=== PATIENT | male | born 1975 | race Caucasian/White ===

== ENCOUNTER 2017-04-04 17:06 | Emergency (ER) | payer MEDICAID ==
[~2017-04-04] VITALS: Ht 182.9 cm; Wt 79.6 kg
[~2017-04-04 17:06] MED LIST: COM10T PO; FAMO-115 CORPAK; HYDR-569 PO; ONDA4TAB6 PO; ONDA8TAB6 PO
[2017-04-04 17:38] VITALS: BP 136/88
[2017-04-04 17:56] LABS: BASOPHILS # (AUTO) 0.1 X10'3 (0-0.2); BASOPHILS % (AUTO) 0.8 % (0-1); EOSINOPHILS % (AUTO) 0 % (0-6); HEMATOCRIT 47.4 % (42.0-52.0); HEMOGLOBIN 16.2 g/dl (14.0-17.9); LYMPHOCYTES # (AUTO) 2.4 X10'3 (1.1-4.8); LYMPHOCYTES % (AUTO) 15.4 % (21-51); MEAN CORPUSCULAR HEMOGLOBIN 30.3 PG (27.0-31.0); MEAN CORPUSCULAR HGB CONC 34.1 % (33.0-36.5); MEAN CORPUSCULAR VOLUME 88.7 FL (78-98); MEAN PLATELET VOLUME 8.3 FL (7.4-10.4); MONOCYTES # (AUTO) 1.2 X10'3 (0-0.9); MONOCYTES % (AUTO) 7.4 % (2-12); NEUTROPHILS # (AUTO) 12.1 X10'3 (1.8-7.7); NEUTROPHILS % (AUTO) 76.4 % (42-75); PLATELET COUNT 421 X10'3 (140-440); RED BLOOD COUNT 5.34 X10'6 (4.70-6.10); RED CELL DISTRIBUTION WIDTH 12.9 % (11.5-14.5); WHITE BLOOD COUNT 15.9 X10'3 (4.5-11.0)
[2017-04-04 18:05] LABS: INR 1.1 INR; PROTHROMBIN TIME 11.2 SECONDS (9.0-12.0)
[2017-04-04 18:11] LABS: ALANINE AMINOTRANSFERASE 59 U/L (12-78); ALBUMIN/GLOBULIN RATIO 0.7 (1.1-1.5); ALKALINE PHOSPHATASE 104 IU/L (46-116); ANION GAP 10 (8-16); ASPARTATE AMINO TRANSFERASE 31 U/L (10-37); BILIRUBIN,TOTAL 0.6 MG/DL (0.1-1.0); BLOOD UREA NITROGEN 22 MG/DL (7-18); BUN/CREATININE RATIO 16.1 (5.4-32.0); CALCIUM 10.2 MG/DL (8.5-10.1); CHLORIDE 94 MMOL/L (99-107); CREATININE 1.37 MG/DL (0.60-1.10); GLUCOSE 110 MG/DL (70-104); POTASSIUM 4.2 MMOL/L (3.5-5.1); SODIUM 136 MMOL/L (135-145); TOTAL CARBON DIOXIDE 32.1 MMOL/L (24-32); TOTAL PROTEIN 9.4 G/DL (6.4-8.2); eGFR 58 ML/MIN
[2017-04-05] MEDS ORDERED: NO HOME MEDS (12:50)
== END 2017-04-04 20:42 | disposition left against medical advice (07) ==
LOC: ER 17:07
DX: R10.9 Unspecified abdominal pain (principal); R11.10 Vomiting, unspecified; Z53.21 Procedure and treatment not carried out due to patient leaving prior to being seen by health care provider
CPT/HCPCS: 36415; 80053; 85025; 85610; 99281

== ENCOUNTER 2017-04-05 09:23 | Inpatient (IN) | payer MEDICAID ==
[~2017-04-05] VITALS: Ht 182.9 cm; Wt 82.0 kg
[2017-04-05] MEDS ORDERED: LORazepam 2 mg/ml vial IV ONE (09:50)
[2017-04-05] MEDS ORDERED: HYDROmorphone 1 mg/ml syringe IV ONE ×2 (09:50→14:40)
[2017-04-05] MEDS ORDERED: famotidine/PF 10 mg/ml inj IV ONE (09:50)
[2017-04-05] MEDS ORDERED: normal saline 1000ML IV soln IVB ONE ×2 (09:50→10:55)
[2017-04-05] MEDS ORDERED: ondansetron/PF 4mg/2ml inj IV ONE (09:50)
[2017-04-05 09:53] LABS: BASOPHILS % (AUTO) 0.2 % (0-1); EOSINOPHILS % (AUTO) 0 % (0-6); HEMATOCRIT 48.4 % (42.0-52.0); HEMOGLOBIN 16.3 g/dl (14.0-17.9); LYMPHOCYTES # (AUTO) 2.5 X10'3 (1.1-4.8); LYMPHOCYTES % (AUTO) 12.9 % (21-51); MEAN CORPUSCULAR HEMOGLOBIN 29.6 PG (27.0-31.0); MEAN CORPUSCULAR HGB CONC 33.7 % (33.0-36.5); MEAN PLATELET VOLUME 8.6 FL (7.4-10.4); MONOCYTES % (AUTO) 5.1 % (2-12); NEUTROPHILS # (AUTO) 15.7 X10'3 (1.8-7.7); NEUTROPHILS % (AUTO) 81.8 % (42-75); PLATELET COUNT 412 X10'3 (140-440); RED BLOOD COUNT 5.49 X10'6 (4.70-6.10); RED CELL DISTRIBUTION WIDTH 12.9 % (11.5-14.5); WHITE BLOOD COUNT 19.2 X10'3 (4.5-11.0)
[2017-04-05 10:13] LABS: ALBUMIN/GLOBULIN RATIO 0.7 (1.1-1.5); ALKALINE PHOSPHATASE 105 IU/L (46-116); ANION GAP 13 (8-16); ASPARTATE AMINO TRANSFERASE 28 U/L (10-37); BILIRUBIN,TOTAL 0.8 MG/DL (0.1-1.0); BLOOD UREA NITROGEN 20 MG/DL (7-18); BUN/CREATININE RATIO 14.1 (5.4-32.0); CHLORIDE 91 MMOL/L (99-107); CREATININE 1.42 MG/DL (0.60-1.10); GLUCOSE 114 MG/DL (70-104); LIPASE 109 U/L (73-393); POTASSIUM 3.2 MMOL/L (3.5-5.1); SODIUM 134 MMOL/L (135-145); TOTAL CARBON DIOXIDE 30.3 MMOL/L (24-32); TOTAL PROTEIN 9.4 G/DL (6.4-8.2); eGFR 55 ML/MIN
[2017-04-05] MEDS ORDERED: iohexol 300mg/ml 100ml inj. ONE (10:25)
[2017-04-05 11:06] LABS: ALANINE AMINOTRANSFERASE 64 U/L (12-78)
[2017-04-05 11:52] LABS: CLARITY,URINE CLEAR (Clear); COLOR,URINE YELLOW (Yellow); GLUCOSE, URINE NEGATIVE (Neg); KETONES,URINE 15 mg/dl (Neg); LEUKOCYTE ESTERASE ,URINE NEGATIVE (Neg); NITRITES, URINE NEGATIVE (Neg); OCCULT BLOOD,URINE MODERATE (Neg); PROTEIN,URINE NEGATIVE (Neg)
[2017-04-05 11:59] LABS: UA COLLECTION TYPE CLN CATCH MIDSTREAM
[2017-04-05 12:00] LABS: BACTERIA,URINE NONE SEEN /HPF (Neg); MUCUS STRANDS FEW /LPF (Neg); RBC,URINE 0-2 /HPF (0-2); SQUAMOUS EPITHELIAL CELL,UR FEW /LPF (FEW); WBC,URINE NONE SEEN /HPF (0-4)
[2017-04-05] MEDS ORDERED: NO HOME MEDS (12:50)
[2017-04-05] MEDS ORDERED: magnesium hydroxide 30ml (MOM) UD suspension PO PRN (15:10)
[2017-04-05] MEDS ORDERED: HYDROcodone/acetaminophen 10/325mg tab PO PRN (15:10)
[2017-04-05] MEDS ORDERED: HYDROcodone/acetaminophen 5mg/325mg tablet PO PRN (15:10)
[2017-04-05] MEDS ORDERED: potassium Cl 20 mEq SR tablet PO PRN ×2 (15:10)
[2017-04-05] MEDS ORDERED: ondansetron/PF 4mg/2ml inj IV PRN (15:10)
[2017-04-05] MEDS ORDERED: magnesium 4gm in 100ml NS 100 ML IV PRN (15:10)
[2017-04-05] MEDS ORDERED: HYDROmorphone 1 mg/ml syringe IV PRN ×2 (15:10)
[2017-04-05] MEDS ORDERED: mag hydrox/Alum hydrox/simeth 30ml oral suspension PO PRN (15:10)
[2017-04-05] MEDS ORDERED: potassium Cl 40MEQ/NS 500ml 500 ML IV PRN ×2 (15:10)
[2017-04-05] MEDS ORDERED: magnesium 2GM in 50ml NS 50 ML IV PRN (15:10)
[2017-04-05] MEDS ORDERED: acetaminophen 325mg tablet PO PRN ×2 (15:10)
[2017-04-05] MEDS ORDERED: magnesium Cl slow-release 64mg tablet PO PRN (15:10)
[2017-04-05 15:18] LABS: URINE AMPHETAMINE SCREEN NEGATIVE (Neg); URINE BARBITUATE SCREEN NEGATIVE (Neg); URINE BENZODIAZEPINES SCREEN NEGATIVE (Neg); URINE CANNABINOID SCREEN POSITIVE (Neg); URINE COCAINE SCREEN NEGATIVE (Neg); URINE METHADONE SCREEN NEGATIVE (Neg); URINE OPIATE SCREEN POSITIVE (Neg); URINE PHENCYCLIDINE SCREEN NEGATIVE (Neg)
[2017-04-05 15:38] LABS: BASOPHILS % (AUTO) 0.2 % (0-1); EOSINOPHILS # (AUTO) 0.2 X10'3 (0-0.9); EOSINOPHILS % (AUTO) 1.1 % (0-6); HEMATOCRIT 39.3 % (42.0-52.0); HEMOGLOBIN 13.3 g/dl (14.0-17.9); LYMPHOCYTES # (AUTO) 3.3 X10'3 (1.1-4.8); LYMPHOCYTES % (AUTO) 17.6 % (21-51); MEAN CORPUSCULAR HEMOGLOBIN 29.8 PG (27.0-31.0); MEAN CORPUSCULAR HGB CONC 33.7 % (33.0-36.5); MEAN CORPUSCULAR VOLUME 88.3 FL (78-98); MONOCYTES # (AUTO) 1.8 X10'3 (0-0.9); MONOCYTES % (AUTO) 9.5 % (2-12); NEUTROPHILS # (AUTO) 13.3 X10'3 (1.8-7.7); NEUTROPHILS % (AUTO) 71.6 % (42-75); PLATELET COUNT 352 X10'3 (140-440); RED BLOOD COUNT 4.45 X10'6 (4.70-6.10); RED CELL DISTRIBUTION WIDTH 12.8 % (11.5-14.5); WHITE BLOOD COUNT 18.5 X10'3 (4.5-11.0)
[2017-04-05 18:39] VITALS: BP 147/99
[2017-04-05 18:45] VITALS: BP 138/93
[2017-04-05] MEDS: K and/or MAG REPLACEMENT MC SCH (19:00)
[2017-04-05] MEDS: normal saline 1000ml 1,000 ML IV SCH (19:14)
[2017-04-05] MEDS ORDERED: temazepam 15mg capsule PO PRN (21:00)
[2017-04-06 00:20] VITALS: BP 139/92
[2017-04-06] MEDS ORDERED: diphenhydrAMINE 50 mg/ml inj ONE (00:26)
[2017-04-06] MEDS ORDERED: methylPREDNISolone sod succ 125mg/2ml vial ONE (00:37)
[2017-04-06] MEDS ORDERED: famotidine/PF 10 mg/ml inj IV STA (00:43)
[2017-04-06] MEDS ORDERED: epiNEPHrine 1 mg/ml inj IM STA (00:46)
[2017-04-06] MEDS ORDERED: epiNEPHrine 1 mg/ml inj ONE (00:48)
[2017-04-06] MEDS ORDERED: famotidine/PF 10 mg/ml inj IV ONE (00:50)
[2017-04-06] MEDS ORDERED: diphenhydrAMINE 50 mg/ml inj IV ONE (00:50)
[2017-04-06] MEDS ORDERED: methylPREDNISolone sod succ 125mg/2ml vial IV ONE (00:50)
[2017-04-06 04:15] VITALS: BP 134/74
[2017-04-06] MEDS: normal saline 1000ml 1,000 ML IV SCH ×3 (04:18→14:44)
[2017-04-06 06:55] VITALS: BP 143/81
[2017-04-06] MEDS: K and/or MAG REPLACEMENT MC SCH (08:00)
[2017-04-06] MEDS ORDERED: enoxaparin 40mg/0.4ml syringe SQ SCH (08:00)
[2017-04-06] MEDS: diphenhydrAMINE 50 mg/ml inj IV SCH ×3 (09:04→20:14)
[2017-04-06 09:29] LABS: BASOPHILS % (AUTO) 0.1 % (0-1); EOSINOPHILS # (AUTO) 0.1 X10'3 (0-0.9); EOSINOPHILS % (AUTO) 0.7 % (0-6); HEMATOCRIT 41.5 % (42.0-52.0); HEMOGLOBIN 13.9 g/dl (14.0-17.9); LYMPHOCYTES # (AUTO) 0.8 X10'3 (1.1-4.8); LYMPHOCYTES % (AUTO) 4.4 % (21-51); MEAN CORPUSCULAR HEMOGLOBIN 30.1 PG (27.0-31.0); MEAN CORPUSCULAR HGB CONC 33.4 % (33.0-36.5); MEAN CORPUSCULAR VOLUME 90.2 FL (78-98); MEAN PLATELET VOLUME 9.4 FL (7.4-10.4); MONOCYTES # (AUTO) 0.1 X10'3 (0-0.9); MONOCYTES % (AUTO) 0.5 % (2-12); NEUTROPHILS # (AUTO) 16.4 X10'3 (1.8-7.7); NEUTROPHILS % (AUTO) 94.3 % (42-75); PLATELET COUNT 346 X10'3 (140-440); RED CELL DISTRIBUTION WIDTH 12.8 % (11.5-14.5); WHITE BLOOD COUNT 17.4 X10'3 (4.5-11.0)
[2017-04-06 09:36] LABS: ANION GAP 7 (8-16); BLOOD UREA NITROGEN 5 MG/DL (7-18); CALCIUM 8.7 MG/DL (8.5-10.1); CHLORIDE 101 MMOL/L (99-107); CREATININE 0.83 MG/DL (0.60-1.10); GLUCOSE 129 MG/DL (70-104); MAGNESIUM 1.7 MG/DL (1.5-2.4); POTASSIUM 3.8 MMOL/L (3.5-5.1); SODIUM 139 MMOL/L (135-145); eGFR > 90 ML/MIN
[2017-04-06] MEDS ORDERED: ondansetron/PF 4mg/2ml inj IV PRN (15:05)
[2017-04-06] MEDS ORDERED: insulin Lispro (HumaLOG) vial - multi-dose SQ SCH (18:40)
[2017-04-06] MEDS ORDERED: glucagon, human recombinant 1mg kit SUBCUT PRN (18:40)
[2017-04-06] MEDS ORDERED: MESSAGE TO PHARMACY PO ONE (18:40)
[2017-04-06] MEDS ORDERED: dextrose 50%-water 50ml dispensing syringe IV PRN ×2 (18:40)
[2017-04-06] MEDS ORDERED: dextrose ORAL solution 15 GM/59 ML bottle PO PRN ×2 (18:40)
[2017-04-06 19:41] LABS: HEMOGLOBIN A1C 5.6 % (4.5-6.2)
[2017-04-06 20:00] VITALS: BP 130/81
[2017-04-06] MEDS ORDERED: Insulin Detemir pen SQ SCH (21:00)
[2017-04-07] VITALS: BP 129/75
[2017-04-07] MEDS: diphenhydrAMINE 50 mg/ml inj IV SCH (01:58)
[2017-04-07] MEDS: normal saline 1000ml 1,000 ML IV SCH (04:50)
[2017-04-07 06:27] LABS: BASOPHILS # (AUTO) 0.1 X10'3 (0-0.2); BASOPHILS % (AUTO) 0.3 % (0-1); EOSINOPHILS # (AUTO) 0.4 X10'3 (0-0.9); EOSINOPHILS % (AUTO) 1.7 % (0-6); HEMATOCRIT 37.5 % (42.0-52.0); HEMOGLOBIN 12.7 g/dl (14.0-17.9); LYMPHOCYTES # (AUTO) 2.3 X10'3 (1.1-4.8); LYMPHOCYTES % (AUTO) 10.2 % (21-51); MEAN CORPUSCULAR HEMOGLOBIN 30.1 PG (27.0-31.0); MEAN CORPUSCULAR HGB CONC 33.8 % (33.0-36.5); MEAN PLATELET VOLUME 9.5 FL (7.4-10.4); MONOCYTES % (AUTO) 8.8 % (2-12); NEUTROPHILS # (AUTO) 17.7 X10'3 (1.8-7.7); PLATELET COUNT 310 X10'3 (140-440); RED BLOOD COUNT 4.22 X10'6 (4.70-6.10); RED CELL DISTRIBUTION WIDTH 12.8 % (11.5-14.5); WHITE BLOOD COUNT 22.4 X10'3 (4.5-11.0)
[2017-04-07 06:59] LABS: ALBUMIN 2.7 G/DL (3.4-5.0); ANION GAP 7 (8-16); BLOOD UREA NITROGEN 7 MG/DL (7-18); BUN/CREATININE RATIO 8.8 (5.4-32.0); CALCIUM 8.3 MG/DL (8.5-10.1); CHLORIDE 102 MMOL/L (99-107); GLUCOSE 100 MG/DL (70-104); MAGNESIUM 1.6 MG/DL (1.5-2.4); POTASSIUM 3.2 MMOL/L (3.5-5.1); SODIUM 139 MMOL/L (135-145); TOTAL CARBON DIOXIDE 29.9 MMOL/L (24-32); eGFR > 90 ML/MIN
[2017-04-07 07:00] VITALS: BP 136/76
== END 2017-04-07 09:02 | disposition left against medical advice (07) | DRG 720 ==
LOC: ER 09:23 → ED HOLD 15:08 → MED 3N 17:05
PROVIDERS: ADMIT Family Medicine; ATTEND Family Medicine
PROC: BW211ZZ Computerized Tomography (CT Scan) of Abdomen and Pelvis using Low Osmolar Contrast (ICD-10-PCS; principal; 2017-04-05)
DX: A41.9 Sepsis, unspecified organism (principal); N17.9 Acute kidney failure, unspecified; E87.1 Hypo-osmolality and hyponatremia; T78.2XXA Anaphylactic shock, unspecified, initial encounter; E87.6 Hypokalemia; E86.0 Dehydration; F17.210 Nicotine dependence, cigarettes, uncomplicated; F12.90 Cannabis use, unspecified, uncomplicated; E11.9 Type 2 diabetes mellitus without complications; K52.9 Noninfective gastroenteritis and colitis, unspecified; Z88.2 Allergy status to sulfonamides
CPT/HCPCS: 36415; 71045; 74177; 80048; 80053; 80305; 81001; 82948; 83036; 83605; 83690; 83735; 84145; 85025; 87040; 87070; 96361; 96374; 96375; 96376; 99285; J0171; J1170; J1200; J1650; J2060; J2405; J2930; J3490; J7030; Q9967